=== PATIENT | male | born 1980 | race Caucasian/White ===

== ENCOUNTER 2019-11-22 05:41 | Outpatient (CLI) | payer OTHER ==
[~2019-11-22] VITALS: Ht 188 cm; Wt 138.6 kg
[2019-11-26] MEDS ORDERED: PANT40TA3 PO (15:34)
[2019-11-26] MEDS ORDERED: LINA72CA PO (15:34)
[2019-11-26] MEDS ORDERED: AMIT150T PO (15:34)
[2019-11-26] MEDS ORDERED: DULO60CA59 PO (15:34)
[2019-11-26] MEDS ORDERED: TIZA4TAB4 PO (15:34)
[2019-11-26] MEDS ORDERED: SENN-273 PO (15:34)
[2019-11-26] MEDS ORDERED: ACET-93 PO (15:34)
[2019-11-26] MEDS ORDERED: LITH300T3 PO (15:34)
[2019-11-26] MEDS ORDERED: VERA120T15 PO (15:34)
== END 2019-11-22 12:05 | disposition home or self-care (01) ==
LOC: PREOP 05:41
PROVIDERS: ATTEND Otolaryngology Otolaryngology/Facial Plastic Surgery
DX: Z01.818 Encounter for other preprocedural examination (principal)

== ENCOUNTER 2019-11-29 07:22 | Day surgery (SDC) | payer OTHER ==
[2019-11-29] VITALS (9 sets, daily range): BP systolic 109–186; BP diastolic 81–104
[~2019-11-29] VITALS: Ht 188 cm; Wt 138.6 kg
[~2019-11-29 07:22] MED LIST: ACET-93 PO; AMIT150T PO; DULO60CA59 PO; LINA72CA PO; LITH300T3 PO; PANT40TA52 PO; SENN-273 PO; TIZA4TAB4 PO; VERA120T15 PO
[2019-11-29] MEDS ORDERED: LACTATED RINGERS 1,000 ML IV PRN (07:35)
--- NOTE | 2019-11-29 07:52 | Progress Note-Pre Operative ---
Pre-Operative Progress Note H&P Reviewed The H&P was reviewed, patient examined and no changes noted. Date Seen by Provider: Nov 29, 2019 Time Seen by Provider: 07:45 Date H&P Reviewed: Nov 29, 2019 Time H&P Reviewed: 07:45 Pre-Operative Diagnosis: Chronic/Recurrent Tonsillitis MARTHA QUIROS MD Nov 29, 2019 07:52
[2019-11-29] MEDS ORDERED: SEVOFLURANE (ULTANE) 15 ML INHAL SOLN ONE (08:03)
[2019-11-29] MEDS ORDERED: ROCURONIUM 10 MG/ML 5 ML SYRINGE IV ONE (08:03)
[2019-11-29] MEDS ORDERED: LIDOCAINE PF 2% 5 ML (XYLOCAINE) VIAL ONE (08:03)
[2019-11-29] MEDS ORDERED: proPOfol 200 MG/20 ML (DIPRIVAN) VIAL IV ONE ×2 (08:03→08:29)
[2019-11-29] MEDS ORDERED: ONDANSETRON 4 MG/2 ML (SDV) Z0FRAN ONE (08:03)
[2019-11-29] MEDS ORDERED: fentaNYL INJECTION 100 MCG/2 ML AMP ONE (08:04)
[2019-11-29] MEDS ORDERED: MIDAZOLAM 2 MG/2 ML (VERSED) VIAL ONE (08:04)
[2019-11-29] MEDS ORDERED: HYDROmorphone 2 MG/ML VIAL (DILAUDID) ONE (08:47)
[2019-11-29] MEDS ORDERED: NS IV 1000 ML 1,000 ML IV SCH (09:11)
--- NOTE | 2019-11-29 09:11 | Progress Note-Post Operative ---
Post-Operative Progess Note Surgeon (s)/[employer] Machine Feeder (s) Surgeon MARTHA QUIROS MD [employer] Feeder n/a Pre-Operative Diagnosis Chronic/Recurrent Tonsillitis Post-Operative Diagnosis same Post-Op Procedure Note Date of Procedure: Nov 29, 2019 Name of Procedure Performed: Tonsillectomy Description & Findings Description and Findings: n/a Anesthesia Type get Estimated Blood Loss minimal Packing none. Specimen(s) collected/removed tonsils MARTHA QUIROS MD Nov 29, 2019 09:10
[2019-11-29] MEDS ORDERED: APAP 325 MG/10.15 ML LIQ (TYLENOL) UDC PO PRN (09:15)
[2019-11-29] MEDS ORDERED: HYDROcodone/APAP 7.5MG-325 MG/15 ML (LORTAB) UDC PO PRN (09:15)
[2019-11-29] MEDS ORDERED: ONDANSETRON 4 MG/2 ML (SDV) Z0FRAN IVP PRN (09:30)
[2019-11-29] MEDS ORDERED: HYDROmorphone 2 MG/ML VIAL (DILAUDID) IV ONE (09:30)
[2019-11-29] MEDS ORDERED: AMOX250S5 PO (10:14)
[2019-11-29] MEDS ORDERED: DEXAINTSOL PO (10:14)
[2019-11-29] MEDS ORDERED: HYDR15SO8 PO (10:14)
[2019-11-29] MEDS ORDERED: TETRACAINESUCKERS MT (10:14)
--- NOTE | 2019-11-30 07:12 | Anesthesia-General Post-Op ---
General Patient Condition Mental Status/LOC: Same as Preop Cardiovascular: Satisfactory Nausea/Vomiting: Absent Respiratory: Satisfactory Pain: Controlled Complications: Absent Post Op Complications Complications None Follow Up Care/Instructions Patient Instructions None needed. Anesthesia/Patient Condition Patient Condition Patient is doing well, no complaints, stable vital signs, no apparent adverse anesthesia problems. No complications reported per nursing. D/C home per [facility] [place] Criteria: Yes EKLLY YOUNG CRNA Nov 30, 2019 07:12
== END 2019-11-29 11:45 ==
LOC: SDC 07:22
PROVIDERS: ATTEND Otolaryngology Otolaryngology/Facial Plastic Surgery
DX: J35.01 Chronic tonsillitis (principal); J44.9 Chronic obstructive pulmonary disease, unspecified; F32.9 Major depressive disorder, single episode, unspecified; F41.9 Anxiety disorder, unspecified; F43.10 Post-traumatic stress disorder, unspecified; G43.909 Migraine, unspecified, not intractable, without status migrainosus; E66.01 Morbid (severe) obesity due to excess calories; Z68.39 Body mass index [BMI] 39.0-39.9, adult; Z79.899 Other long term (current) drug therapy; Z87.891 Personal history of nicotine dependence
CPT/HCPCS: 87081; 88304